=== PATIENT | female | born 1945 | race Caucasian/White ===

== ENCOUNTER 2017-12-22 07:10 | Inpatient (IN) | payer OTHER ==
[2017-12-22] MEDS ORDERED: CELECOXIB 200 MG CAPSULE PO ONE (07:28)
[2017-12-22] MEDS ORDERED: GABAPENTIN 300 MG CAPSULE (FP) PO ONE (07:28)
[2017-12-22] MEDS ORDERED: TRANEXAMIC ACID 1000 MG/10 ML VIAL IVPUSH ONE (07:28)
[2017-12-22] MEDS ORDERED: CEFAZOLIN 2 GM in DEXTROSE 5%-WATER - 50 ML IVPB ONE (07:28)
[2017-12-22] MEDS ORDERED: VANCOMYCIN 1,000 MG VIAL (RESTRICTED TO ID ONLY) ONE (07:50)
[2017-12-22] MEDS ORDERED: ceFAZolin SODIUM 1 GM VIAL ONE ×2 (07:50→10:12)
[2017-12-22 08:24] VITALS: BMI 40.1
[2017-12-22] MEDS ORDERED: BUPIVACAINE LIPOSOME/PF (EXPAREL) 266 MG/20 ML VIAL ONE (09:21)
[2017-12-22] MEDS ORDERED: BUPIVACAINE HCL/PF 2.5 MG/ML - 30 ML VIAL IJ ONE (09:21)
[2017-12-22] MEDS ORDERED: MIDAZOLAM HCL 2 MG/2 ML SINGLE DOSE VIAL ONE ×2 (09:21→10:45)
--- NOTE | 2017-12-22 10:07 | HP ---
[facility] - Chief Complaint Chief Complaint: right knee pain - Past Medical History Allergies/Adverse Reactions: Allergies Allergy/AdvReac Type Severity Reaction Status Date / Time diphenhydramine HCl Allergy Severe syncope Verified 12/14/17 14:35 [From Benadryl] Iodinated Contrast- Oral and Allergy Severe Swelling Verified 12/14/17 14:35 IV Dye orange Allergy Severe Difficulty Verified 12/14/17 14:35 Breathing Penicillins Allergy Severe Rash Verified 12/14/17 14:35 pentobarbital Allergy Severe Swelling Verified 12/14/17 14:35 - Current Medications Current Medications: Home Medications Medication Instructions Recorded Acetaminophen [Extra Strength 500 mg PO BID PRN 03/07/16 Non-Aspirin] Albuterol Sulfate Inhaler - 1 - 2 inh PO QID PRN 03/07/16 [Ventolin Hfa Inhaler -] Apixaban [Eliquis -] 5 mg PO BID 03/07/16 Carvedilol [Coreg] 12.5 mg PO BID 03/07/16 Diltiazem HCl [Diltiazem 24Hr Cd] 180 mg PO DAILY 03/07/16 Lidocaine 5% Patch [Lidoderm Patch 1 patch TP DAILY 03/07/16 -] Omeprazole 20 mg PO DAILY 03/07/16 Ascorbic Acid [Vitamin C] 1,000 mg PO DAILY 12/14/17 Aspirin [ASA -] 325 mg PO DAILY 12/14/17 Atorvastatin Ca [Lipitor] 10 mg PO DAILY 12/14/17 Budesonide [Pulmicort 0.5 mg 1 neb NEB ASDIR PRN 12/14/17 Nebulizer -] Calcium Carbonate [Calcium] 500 mg PO DAILY 12/14/17 Folic Acid - 1 mg PO DAILY 12/14/17 Ibuprofen 600 mg PO ASDIR PRN 12/14/17 Magnesium 200 mg PO DAILY 12/14/17 Multivit-Min/Iron/Folic/Lutein 1 each PO DAILY 12/14/17 [Centrum Silver Women Tablet] [place]-3 Fatty Acids/Fish Oil [Fish 1 each PO DAILY 12/14/17 Oil 1,000 mg Capsule] Potassium 99 mg PO DAILY 12/14/17 Prednisone [Deltasone] 20 mg PO ASDIR 12/14/17 Ranitidine HCl 300 mg PO HS 12/14/17 Salmeterol/Fluticasone [Advair 1 inh PO BID PRN 12/14/17 100Mcg/50Mcg -] Turmeric Root Extract [Turmeric] 500 mg PO DAILY 12/14/17 Zafirlukast 20 mg PO BID 12/14/17 Chlorthalidone 25 mg PO DAILY 12/22/17 Fluticasone Prop 0.05% Nasal 1 - 2 spray NS DAILY PRN 12/22/17 [Flonase -] Fluticasone/Salmeterol [Advair 1 each IH DAILY 12/22/17 250-50 Diskus] Sodium Chloride [Saline Nasal 45 ml NS ASDIR PRN 12/22/17 [place]] Satellite Physical Exam - Physical Examination Vital Signs: Vital Signs Period Temp Pulse Resp BP Sys/Borges Pulse Ox Last 24 Hr 98.6 F 54 18 140/79 General Appearance: Well Nourished, Well Developed, Alert & Oriented x3 ENT: Clear Lung: Normal air movement Heart: Regular rate & rhythm Extremities: Other (right knee- + swelling, + ttp, decro rom, nvi xrays show grade4 tricompartmental djd) Neurological: Intact, Alert, Oriented Satellite Impression/Plan - Impression/Plan Impression: right knee djd Operative Procedure: right yogesh tkr Date to be Performed: 12/22/17
[2017-12-22] MEDS ORDERED: PROPOFOL 20 ML ONE ×3 (10:11)
[2017-12-22] MEDS ORDERED: SUCCINYLCHOLINE CHLORIDE 200 MG/10 ML VIAL ONE (10:12)
[2017-12-22] MEDS ORDERED: ONDANSETRON 4 MG/2 ML VIAL ONE (10:12)
[2017-12-22] MEDS ORDERED: DEXAMETHASONE SOD PHOSPHATE 4 MG/1 ML VIAL ONE (10:12)
[2017-12-22] MEDS ORDERED: TRANEXAMIC ACID 1000 MG/10 ML VIAL ONE (10:17)
[2017-12-22] MEDS ORDERED: ePHEDrine SULFATE 50 MG/1 ML AMPULE ONE (10:20)
[2017-12-22] MEDS ORDERED: VANCOMYCIN 1,000 MG VIAL (RESTRICTED TO ID ONLY) IVPB ONE (11:26)
[2017-12-22] MEDS ORDERED: FLUTICASONE/SALMETEROL 100 MCG/50 MCG DISKUS IH PRN (11:56)
[2017-12-22] MEDS ORDERED: FLUTICASONE PROP 0.05% 16 GM NASAL SPRAY NS PRN (11:56)
[2017-12-22] MEDS ORDERED: BUDESONIDE 0.5 MG/2 ML INH SUSP VIAL NEB PRN (11:56)
[2017-12-22] MEDS ORDERED: MAGNESIUM HYDROX 2400MG/30ML ORAL SUSPENSION 30 ML CUP PO PRN (12:00)
[2017-12-22] MEDS ORDERED: LACTATED RINGERS SOLUTION 1,000 ML IV SCH (12:00)
[2017-12-22] MEDS ORDERED: MAG HYDROX/AL HYDROX/SIMETH 30 ML UNIT-DOSE CUP PO PRN (12:00)
--- NOTE | 2017-12-22 12:04 | OP ---
Operative Note - Note: Operative Date: 12/22/17 (tiffanie) Pre-Operative Diagnosis: right knee djd Operation: right yogesh tkr Post-Operative Diagnosis: Same as Pre-op Surgeon: Flaco Sosa Analog Design Engineer: Mo Unger Anesthesiologist/NEWS DEPARTMENT INTERN: Satnam Pickering Anesthesia: Spinal, Local Specimens Removed: bone fragments Estimated Blood Loss (mls): 100 Operative Report Dictated: Yes
--- NOTE | 2017-12-22 12:09 | SPEC ---
DATE OF OPERATION: 12/22/2017 PREOPERATIVE DIAGNOSIS: Right knee degenerative joint disease. POSTOPERATIVE DIAGNOSIS: Right knee degenerative joint disease. PROCEDURE: Right total knee replacement with robotic-assisted navigation (Makoplasty). SURGICAL ATTENDING: Flaco Sosa MD BAKER BREAD: RAKESH Thapa ANESTHESIA: Regional and spinal. CLOSURE: Triathlon cemented knee system with 4 femur, 3 tibia, 9 polyethylene, 29 patella, No. 1 Vicryl to fascia, 0 and 2-0 subcutaneous, 3-0 Monocryl subcuticular with skin glue for skin, 4-0 undyed Vicryl for pin site. ESTIMATED BLOOD LOSS: Negligible. TOURNIQUET TIME: Approximately 24 minutes. COMPLICATIONS: No complications. CONDITION: To recovery room stable. DESCRIPTION OF OPERATIVE PROCEDURE: Patient was taken to the operating room on December 22, 2017. Regional and general anesthesia was administered by the anesthesiologist. IV Kefzol and TXA were administered by the anesthesiologist. Well-padded pneumatic tourniquet was placed on the proximal thigh. The right lower extremity was prepped and draped in the usual sterile fashion. The leg was exsanguinated with an Esmarch bandage, and tourniquet was inflated to 275 mmHg. A 12 to 15-cm longitudinal midline incision was incised while centered over the patella. The dissection was carried down to the level of the extensor mechanism with sufficient flaps made to adequately perform the procedure. A medial parapatellar arthrotomy was then performed. We made a cuff of tissue on the patella for later closure. The patella was inverted, the knee was flexed up. The fat pad was excised. The subperiosteal dissection was on the anteromedial proximal tibia around towards the direction of the MCL. The ACL and the PCL were transected and debrided. The meniscal remnants of the medial and lateral meniscus were debrided and removed. This allowed the knee to be able to "be brought forward." The checkpoints were malleted into the tibia and into the femur. Two threaded pins were drilled anteroposteriorly proximal to the knee through the previous incision, through the anterior cortex, then just engaging the posterior cortex. To these pins was assembled the femoral navigation array. One handbreadth below the tibial tubercle, 2 stab incisions were used to drill 2 threaded pins in parallel fashion into the tibia, again through the anterior cortex and just engaging the posterior cortex. To these pins was fastened the tibial arrays. The knee was then registered with the navigation device with center of rotation of the hip, medial and lateral malleoli, both checkpoints, and multiple points on both the femur and the tibia to ensure excellent registration. The navigation device was directed off the "top of the bubbles" on both the femur and the tibia. The navigation passed within less than 0.5 mm to plan. The knee was then thoroughly inspected to remove all osteophytes both medially, laterally, and on the femur and the tibia, and whatever osteophytes were available for dissection. The knee was then taken to extension and to flexion, and stressed in both varus and valgus to assess flexion gaps. The virtual position of the components on the navigation device were then manipulated to optimize the position and to ensure equal gaps in both flexion and extension, and both medially and laterally. The robot was then brought into the field and was registered. The cuts were then made both on the femur and on the tibia as to plan. All osteophytes posteriorly were then removed as well. The gaps were then measured again in flexion and extension to be equal in both flexion and extension and medial and laterally. The femoral notch was then made, as we were doing a posterior stabilizing component, with the appropriate sized box. Trial reduction of the femur achieved excellent [id number] fit. A tibial baseplate of appropriate polyethylene thickness was "floated in the knee." It was ensured to be in the excellent position by navigation devices and was pinned in place. The knee was taken through a range of motion, and found to have excellent stability throughout flexion and extension. The patella was calibrated for thickness and osteotomized down to the appropriate level. The appropriate lollipop was used to drill the lug holes in the patella and the trial button was applied. The knee was taken through a range of motion and found to have excellent tracking of the patella, and patella from full extension to full flexion. Trial components were removed, the keel was punched and drilled, and a sclerotic bone on the tibia was drilled to help with cement interdigitation. The knee was thoroughly irrigated with the pulse antibiotic material control analyst. The real components were then cemented in using monitored arrangement cement techniques with antibiotic cement, and pressurization and extension. After the cement was hardened, the knee was thoroughly inspected to remove any extra cement. The real polyethylene component was then clipped into place. Range of motion, stability, and tracking were as described earlier. The checkpoints and the pins were removed. The knee was thoroughly irrigated with antibiotic irrigation. Vancomycin powder was placed into the knee for antibiotic prophylaxis. The medial parapatellar arthrotomy was then closed using number 1 Vicryl interrupted suture. After closure of the deep layer, the knee was taken through a range of motion, and found to have excellent stability of the patella with no dislocation and no undue tension on the repair. The subcutaneous was pulse antibiotic irrigated, and was then closed with 2-0 Vicryl, 3-0 Monocryl subcuticular with the skin glue for the skin. The distal tibial pin site was irrigated thoroughly as well and then closed with 4-0 undyed Vicryl. A sterile Aquacel dressing was applied, followed by a Gallagher dressing. Tourniquet was deflated. Total tourniquet time was approximately 75 minutes. No complications. Patient was awakened from anesthesia and transferred to recovery room in stable condition. Postoperative x-rays revealed excellent position of the components. Moni [id number]
[2017-12-22] MEDS ORDERED: PROMETHAZINE HCL 25 MG/1 ML VIAL IVPB PRN (12:34)
[2017-12-22] MEDS ORDERED: ONDANSETRON 4 MG/2 ML VIAL IVPUSH PRN (12:34)
[2017-12-22] MEDS ORDERED: ACETAMINOPHEN 325 MG TABLET (FP) PO SCH (12:45)
[2017-12-22] MEDS ORDERED: ALBUTEROL SO4 0.083% IH SOL 2.5 MG/3 ML VIAL.NEB. NEB PRN (14:34)
[2017-12-22] MEDS: oxyCODONE HCL 5 MG TABLET PO PRN ×4 (15:30→19:42)
[2017-12-22] MEDS: CEFAZOLIN 2 GM/D5W 2 GM/50 ML ML IVPB SCH (17:43)
[2017-12-22] MEDS: ACETAMINOPHEN 325 MG TABLET (FP) PO SCH (19:43)
[2017-12-22] MEDS ORDERED: PT OWN MED DRAWER 7, Y5N ONE (20:12)
[2017-12-22] MEDS: FLUTICASONE/SALMETEROL 100 MCG/50 MCG DISKUS IH SCH (21:07)
[2017-12-22] MEDS: SENNOSIDES/DOCUSATE COMBO (SENNA PLUS) TABLET (UD) PO SCH (21:11)
[2017-12-22] MEDS: CARVEDILOL 12.5 MG TABLET (FP) PO SCH (21:11)
[2017-12-22] MEDS ORDERED: ZAFIRLUKAST 20 MG PO SCH (22:00)
[2017-12-23] MEDS: oxyCODONE HCL 5 MG TABLET PO PRN ×5 (00:35→18:54)
[2017-12-23] MEDS: ACETAMINOPHEN 325 MG TABLET (FP) PO SCH ×4 (00:59→21:29)
[2017-12-23] MEDS: CEFAZOLIN 2 GM/D5W 2 GM/50 ML ML IVPB SCH (00:59)
[2017-12-23] MEDS: ONDANSETRON 4 MG/2 ML VIAL IVPUSH PRN ×2 (07:02→15:27)
[2017-12-23 08:40] LABS: HEMOGLOBIN 10.9 GM/dl (10.7-15.3); MCH 28.3 pg (25.7-33.7); MCHC 31.3 g/dl (32.0-36.0); MEAN CELL VOLUME 90.4 fl (80-96); MEAN PLT VOLUME 8.5 fl (7.5-11.1); PLATELET COUNT 299 K/MM3 (134-434); RBC 3.87 M/mm3 (3.60-5.2); RDW 13.6 % (11.6-15.6); WHITE BLOOD COUNT 12.6 K/mm3 (4.0-10.8)
[2017-12-23] MEDS ORDERED: PT OWN MED DRAWER 7, Y5N ONE (09:14)
[2017-12-23] MEDS: MULTIVITAMINS (DAILY MVI) TABLET (FP) PO SCH (09:26)
[2017-12-23] MEDS: MAGNESIUM OXIDE 400 MG TABLET (FP) PO SCH (09:27)
[2017-12-23] MEDS: CHLORTHALIDONE 25 MG TABLET PO SCH (09:27)
[2017-12-23] MEDS: PANTOPRAZOLE 40 MG TABLET (FP) PO SCH (09:28)
[2017-12-23] MEDS: APIXABAN 5 MG TABLET PO SCH ×2 (09:28→21:27)
[2017-12-23] MEDS: CARVEDILOL 12.5 MG TABLET (FP) PO SCH ×2 (09:28→21:27)
[2017-12-23] MEDS: SENNOSIDES/DOCUSATE COMBO (SENNA PLUS) TABLET (UD) PO SCH ×2 (09:28→21:27)
[2017-12-23] MEDS: FLUTICASONE/SALMETEROL 100 MCG/50 MCG DISKUS IH SCH ×2 (09:32→21:30)
--- NOTE | 2017-12-23 09:50 | PN ---
Progress Note (short form) - Note Progress Note: 72F POD1 s/p R TKR under spinal anesthetic with peripheral nerve blocks for post operative pain relief. Pt takes approximately 40 mg oxycodone daily at home, states that her pain is only moderately controlled. Pt also c/o nausea. Oxycodone sliding scale adjusted to reflect patient's likely tolerance to narcotics with some improvement. AVSS. Motor and sensory function intact in bilateral lower extremities. Continue current regimen.
[2017-12-23] MEDS ORDERED: PATIENT'S OWN MEDICATION (NON-FORMULARY) (Magnesium [Magnesium] 200 MG) PO SCH (10:00)
[2017-12-23] MEDS ORDERED: PATIENT'S OWN MEDICATION (NON-FORMULARY) (Omeprazole 20 MG) PO SCH (10:00)
[2017-12-23] MEDS ORDERED: POTASSIUM 99 MG PO SCH (10:00)
[2017-12-23] MEDS ORDERED: ASPIRIN 325 MG TABLET PO SCH (10:00)
--- NOTE | 2017-12-23 12:20 | PN ---
Progress Note (short form) - Note Progress Note: Ortho Pt seen and examined s/p right yogesh tkr pod #1 Selected Entries 12/23/17 09:23 Temperature 97.5 F L Pulse Rate 58 L Respiratory 18 Rate Blood Pressure 165/58 L Laboratory Tests 12/23/17 08:05 WBC 12.6 H Hgb 10.9 Hct 35.0 Plt Count 299 dressing c/d/i, calf soft nt, rom 5-60, nvi a/p PT dvt ppx pain control d/c planning
[2017-12-23] MEDS: KETOROLAC TROMETHAMINE 30 MG/1 ML VIAL IVPUSH SCH ×2 (13:25→18:52)
[2017-12-23] MEDS ORDERED: ATORVASTATIN CA 10 MG TABLET (FP) PO SCH (22:00)
[2017-12-24] MEDS: oxyCODONE HCL 5 MG TABLET PO PRN ×3 (00:30→13:00)
[2017-12-24] MEDS: ACETAMINOPHEN 325 MG TABLET (FP) PO SCH ×3 (01:28→13:00)
--- NOTE | 2017-12-24 08:00 | PN ---
Progress Note (short form) - Note Progress Note: Ortho Pt seen and examined s/p right yogesh tkr pod #2 Selected Entries 12/24/17 06:00 Temperature 98.2 F Pulse Rate 64 Respiratory 20 Rate Blood Pressure 147/47 L Laboratory Tests 12/23/17 08:05 WBC 12.6 H Hgb 10.9 Hct 35.0 Plt Count 299 dressing c/d/i, calf soft nt, rom 0-60, nvi a/p PT dvt ppx pain control d/c home today f/u in 1 week
--- NOTE | 2017-12-24 08:01 | DS ---
Physical Examination Vital Signs: Vital Signs Temperature 98.2 F 12/24/17 06:00 Pulse Rate 64 12/24/17 06:00 Respiratory Rate 20 12/24/17 06:00 Blood Pressure 147/47 L 12/24/17 06:00 O2 Sat by Pulse Oximetry (%) 92 L 12/24/17 06:00 Labs: CBC, BMP 12/23/17 08:05 Discharge Summary Reason For Visit: OSTEOARTHRITIS Procedures: Principal: right tkr Hospital Course: admitted for elective right yogesh tkr, uneventful post-op, stable for d/c Condition: Good - Instructions Diet, Activity, Other Instructions: Post-op Instructions-Total Knee Replacement Call the office for a follow-up appointment in 1 week - [phone] Aspirin 325mg daily for 6 weeks. Pain medication was sent into your pharmacy. Apply Graduated Compression Stockings (TEDs) to both lower extremities- remove daily for hygiene ONLY Apply Sequential Compression Device (SCDs) to both Lower extremities remove for PT and hygiene ONLY Apply cold packs to affected area for 15 minutes every 2 hours. Physical Therapist will come to your home for the first 5 days. You will be set up with outpatient PT at your first post-operative visit. Patient may ambulate as tolerated-encourage self care (at least every 2-3 hours while awake) with walker or cane Maintain Aquacel (waterproof) dressing to operative wound (will be removed by surgeon at first office visit) Shower with Aquacel dressing in place-if Aquacel integrity compromised, remove and apply dry sterile dressing and notify Orthopedist. DO NOT SHOWER unless Orthopedists approves without Aquacel dressing CONTACT THE OFFICE FOR ANY CHANGE IN YOUR CONDITION (for example-fever greater than 102 degrees, excessive bleeding from operative site, purulent drainage, severe swelling or pain) GO TO THE EMERGENCY ROOM IF THERE IS A MEDICAL EMERGENCY Knee Precautions: * Keep a rolled towel under affected heel while in bed or chair (to keep knee in extension) * Keep affected leg elevated except during mealtimes * DO NOT PLACE PILLOW UNDER AFFECTED KNEE * If you have any questions, please do not hesitate to call the office - [phone]. Referrals: Flaco Sosa MD [Staff Physician] - Disposition: VNS/HOME HEALTH CARE - Home Medications Comprehensive Discharge Medication List: Ambulatory Orders Acetaminophen [Extra Strength Non-Aspirin] 500 mg PO BID PRN 03/07/16 Albuterol Sulfate Inhaler - [Ventolin HFA Inhaler -] 1 - 2 inh PO QID PRN Apixaban [Eliquis -] 5 mg PO BID 03/07/16 Carvedilol [Coreg] 12.5 mg PO BID 03/07/16 Diltiazem HCl [Diltiazem 24Hr Cd] 180 mg PO DAILY 03/07/16 Lidocaine 5% Patch [Lidoderm -] 1 patch TP DAILY 03/07/16 Omeprazole 20 mg PO DAILY 03/07/16 Ascorbic Acid [Vitamin C] 1,000 mg PO DAILY 12/14/17 Aspirin [ASA -] 325 mg PO DAILY 12/14/17 Atorvastatin Ca [Lipitor] 10 mg PO DAILY 12/14/17 Budesonide [Pulmicort 0.5 mg Nebulizer -] 1 neb NEB ASDIR PRN 12/14/17 Calcium Carbonate [Calcium] 500 mg PO DAILY 12/14/17 Folic Acid - 1 mg PO DAILY 12/14/17 Ibuprofen 600 mg PO ASDIR PRN 12/14/17 Magnesium 200 mg PO DAILY 12/14/17 Multivit-Min/Iron/Folic/Lutein [Centrum Silver Women Tablet] 1 each PO DAILY 06/26 [place]-3 Fatty Acids/Fish Oil [Fish Oil 1,000 mg Capsule] 1 each PO DAILY Potassium 99 mg PO DAILY 12/14/17 Prednisone [Deltasone] 20 mg PO ASDIR 12/14/17 Ranitidine HCl 300 mg PO HS 12/14/17 Salmeterol/Fluticasone [Advair 100Mcg/50Mcg -] 1 inh PO BID PRN 12/14/17 Turmeric Root Extract [Turmeric] 500 mg PO DAILY 12/14/17 Zafirlukast 20 mg PO BID 12/14/17 Chlorthalidone 25 mg PO DAILY 12/22/17 Fluticasone Prop 0.05% Nasal [Flonase -] 1 - 2 spray NS DAILY PRN 12/22/17 Fluticasone/Salmeterol [Advair 250-50 Diskus] 1 each IH DAILY 12/22/17 Oxycodone HCl/Acetaminophen [Percocet 5-325 mg Tablet -] 1 - 2 tab PO Q6H #50 tab MDD 8 12/22/17 Sodium Chloride [Saline Nasal [place]] 45 ml NS ASDIR PRN 12/22/17
[2017-12-24 09:22] VITALS: BP 116/48; PULSE 98; TEMP 98.6
[2017-12-24] MEDS: MULTIVITAMINS (DAILY MVI) TABLET (FP) PO SCH (09:24)
[2017-12-24] MEDS: ONDANSETRON 4 MG/2 ML VIAL IVPUSH PRN (09:24)
[2017-12-24] MEDS: FLUTICASONE/SALMETEROL 100 MCG/50 MCG DISKUS IH SCH (09:24)
[2017-12-24] MEDS: PANTOPRAZOLE 40 MG TABLET (FP) PO SCH (09:24)
[2017-12-24] MEDS: APIXABAN 5 MG TABLET PO SCH (09:24)
[2017-12-24] MEDS: CARVEDILOL 12.5 MG TABLET (FP) PO SCH (09:24)
[2017-12-24] MEDS: MAGNESIUM OXIDE 400 MG TABLET (FP) PO SCH (09:26)
[2017-12-24] MEDS: SENNOSIDES/DOCUSATE COMBO (SENNA PLUS) TABLET (UD) PO SCH (09:27)
[2017-12-24] MEDS: CHLORTHALIDONE 25 MG TABLET PO SCH (09:27)
--- NOTE | 2017-12-25 18:16 | PATH ---
Surgical Pathology Report Patient Name: ALVINO BILL Med. Rec. #: [id number] /Age/Gender: 1945 (Age: 72) / F Account: [id number] Location: [facility] Taken: 12/22/2017 Received: 12/22/2017 Reported: 12/25/2017 Physicians: Flaco Sosa M.D. Specimen(s) Received BONES RIGHT KNEE Clinical History Right knee osteoarthritis Final Diagnosis BONE, KNEE, RIGHT, TOTAL KNEE REPLACEMENT: BONE WITH DEGENERATIVE JOINT DISEASE AND FIBROADIPOSE TISSUE. Electronically Signed Ashley Quintanilla M.D. Gross Description Received in formalin labeled "right knee bones," is a 10.0 x 8.0 x 1.8 cm aggregate of multiple portions of bone and soft tissue. The tibial plateau measures 7.0 x 4.7 x 1.4 cm. There is a 2.7 cm in greatest dimension area of eburnation present. The remaining articular surfaces are marin-yellow and diffusely granular. The underlying trabecular bone is yellow and hard. Lap Welder sections are submitted in one cassette, following decalcification. /12/24/201712/24/2017
== END 2017-12-24 13:02 | disposition home health service (06) | DRG 470 ==
LOC: FM/S 07:10
PROVIDERS: ADMIT Orthopaedic Surgery; ATTEND Orthopaedic Surgery
PROC: 8E0Y0CZ Robotic Assisted Procedure of Lower Extremity, Open Approach (ICD-10-PCS; 2017-12-22)
PROC: 0SRC0J9 Replacement of Right Knee Joint with Synthetic Substitute, Cemented, Open Approach (ICD-10-PCS; principal; 2017-12-22 09:30)
DX: M17.12 Unilateral primary osteoarthritis, left knee (principal); M17.11 Unilateral primary osteoarthritis, right knee
CPT/HCPCS: 36415; 73560-TC-RT-FY; 85027; 88305-TC; 88311-TC; 94760; 97116-GP; 97162-GP